=== PATIENT | female | born 1995 | race Caucasian/White ===

== ENCOUNTER 2018-10-27 09:59 | Emergency (ER) | payer OTHER ==
[~2018-10-27] VITALS: Ht 160 cm; Wt 51.5 kg
[2018-10-27 10:56] LABS: BASO % 0 % (0-3); EOS % 0 % (0-3); HEMATOCRIT 42.1 % (36.0-47.0); HEMOGLOBIN 14.6 g/dL (12.0-15.5); LYMPH % 19 % (24-48); MEAN CORPUSCULAR HEMOGLOBIN 32 pg (25-35); MEAN CORPUSCULAR HGB CONC 35 g/dL (31-37); MEAN CORPUSCULAR VOLUME 93 fL (79-100); MONO # 0.6 x10^3/uL (0.0-1.1); MONO % 6 % (0-9); NEUT # 7.9 x10^3uL (1.8-7.7); NEUT % 75 % (31-73); PLATELET COUNT 228 x10^3/uL (140-400); RED BLOOD COUNT 4.51 x10^6/uL (3.50-5.40); RED CELL DISTRIBUTION WIDTH 12.3 % (11.5-14.5); WHITE BLOOD COUNT 10.5 x10^3/uL (4.0-11.0)
--- NOTE | 2018-10-27 11:39 | PHYS DOC ---
Past History Past Medical History: No Pertinent History Past Surgical History: No Surgical History Smoking: Non-smoker Alcohol Use: None Drug Use: None Adult General Chief Complaint Chief Complaint: VAGINAL BLEEDING HPI HPI Patient is a 23 year old female with LMP of September 08 with positive urine and blood tests complaining of vaginal bleeding since this morning without abdominal pain. Patient complaining of one episode of bleeding after going to the bathroom with bright red blood without passing tissue. Patient did not start [facility] care. Review of Systems Review of Systems Constitutional: Denies fever or chills [] Eyes: Denies change in visual acuity, redness, or eye pain [] HENT: Denies nasal congestion or sore throat [] Respiratory: Denies cough or shortness of breath [] Cardiovascular: No additional information not addressed in HPI [] GI: Denies abdominal pain, nausea, vomiting, bloody stools or diarrhea [] : Denies dysuria or hematuria [] Musculoskeletal: Denies back pain or joint pain [] Integument: Denies rash or skin lesions [] Neurologic: Denies headache, focal weakness or sensory changes [] Endocrine: Denies polyuria or polydipsia [] All other systems were reviewed and found to be within normal limits, except as documented in this note. Allergies Allergies Allergies Coded Allergies Type Severity Reaction Last Updated Verified No Known Drug Allergies 10/27/18 No Physical Exam Physical Exam Constitutional: Well developed, well nourished, no acute distress, non-toxic appearance. [] HENT: Normocephalic, atraumatic. Eyes: PERRLA, EOMI, conjunctiva normal, no discharge. [] Neck: Normal range of motion, no tenderness, supple, no stridor. [] Cardiovascular:Heart rate regular rhythm, no murmur [] Lungs & Thorax: Bilateral breath sounds clear to auscultation [] Abdomen: Bowel sounds normal, soft, no tenderness, no masses, no pulsatile masses, patient refused vaginal exam. Skin: Warm, dry, no erythema, no rash. [] Back: No tenderness, no CVA tenderness. [] Extremities: No tenderness, no cyanosis, no clubbing, ROM intact, no edema. [] Neurologic: Alert and oriented X 3, normal motor function, normal sensory function, no focal deficits noted. [] Psychologic: Affect normal, judgement normal, mood normal. [] Current Patient Data Vital Signs Vital Signs Date Time Temp Pulse Resp B/P (MAP) Pulse Ox O2 Delivery O2 Flow Rate FiO2 10/27/18 11:12 93 20 108/71 (83) 99 Room Air 10/27/18 10:05 98.1 Lab Results Laboratory Tests Test 10/27/18 10:28 White Blood Count 10.5 x10^3/uL (4.0-11.0) Red Blood Count 4.51 x10^6/uL (3.50-5.40) Hemoglobin 14.6 g/dL (12.0-15.5) Hematocrit 42.1 % (36.0-47.0) Mean Corpuscular Volume 93 fL (79-100) Mean Corpuscular Hemoglobin 32 pg (25-35) Mean Corpuscular Hemoglobin Concent 35 g/dL (31-37) Red Cell Distribution Width 12.3 % (11.5-14.5) Platelet Count 228 x10^3/uL (140-400) Neutrophils (%) (Auto) 75 % (31-73) H Lymphocytes (%) (Auto) 19 % (24-48) L Monocytes (%) (Auto) 6 % (0-9) Eosinophils (%) (Auto) 0 % (0-3) Basophils (%) (Auto) 0 % (0-3) Neutrophils # (Auto) 7.9 x10^3uL (1.8-7.7) H Lymphocytes # (Auto) 2.0 x10^3/uL (1.0-4.8) Monocytes # (Auto) 0.6 x10^3/uL (0.0-1.1) Eosinophils # (Auto) 0.0 x10^3/uL (0.0-0.7) Basophils # (Auto) 0.0 x10^3/uL (0.0-0.2) Maternal Serum HCG Beta Subunit 619 mIU/mL (0-6) H EKG EKG [] Radiology/Procedures Radiology/Procedures [][address] [address] IMAGING REPORT Signed PATIENT: MOIRA VASQUEZ ACCOUNT: [id number] : 1995 LOCATION: ER AGE: 23 SEX: F EXAM STATUS: DEP ER ORD. PHYSICIAN: JAIRO COLINDRES MD REASON: 6 weeks wth vaginal bleeding PROCEDURE: OB <14 WKS W/TV Obstetrical ultrasound, 10/27/2018: HISTORY: , vaginal bleeding Transabdominal and transvaginal scans were obtained. The uterus is within normal limits in size. The central uterine echo complex is heterogeneous, measuring approximately 8 mm in AP dimension. No intrauterine gestational sac is seen. A tiny amount of fluid is present in the endocervical canal. The ovaries are of normal size. No adnexal mass is seen. A small amount of free fluid is noted in the cul-de-sac. IMPRESSION: 1. No intrauterine or extrauterine gestational sac is identified. Diagnostic possibilities include a recent spontaneous , a very early IUP or an occult ectopic . Correlation with serial hCG titers and sonographic follow-up is suggested. 2. A small amount of fluid is present in the endocervical canal. 3. Small amount of free fluid in the cul-de-sac. Electronically signed by: Jere Murphy MD (10/27/2018 11:27 AM) [facility] DICTATED AND SIGNED BY: JERE MURPHY MD DATE: 10/27/18 1121 CC: JAIRO COLINDRES MD; PCP,LESTER ~ Course & Med Decision Making Course & Med Decision Making Pertinent Labs and Imaging studies reviewed. (See chart for details) Evaluation of patient in ER showed 23-year-old female patient with LMP of September 08 with one episodes of vaginal bleeding since this morning. Patient had unremarkable physical exam. HCG level was 615 and OB ultrasound did not show intra-or extrauterine . Patient informed about possible recent or very early and instructed to follow-up with [facility] in 2 days for repeat hCG and return to ER if continuing to have vaginal bleeding or heavy bleeding. Dragon Disclaimer Dragon Disclaimer This electronic medical record was generated, in whole or in part, using a voice recognition dictation system. Departure Departure: Impression: Primary Impression: Threatened in early Referrals: [facility] (PCP) Patient Instructions: Threatened Miscarriage Additional Instructions: Follow-up with on-call [facility] [facility] [facility] Dr Fischer in 2 days to repeat the blood tests, call [phone] to make an appointment Drink plenty of liquids Return to ER if not getting better JAIRO COLINDRES MD Oct 27, 2018 11:39
[2018-10-27 12:20] VITALS: BP 108/68
--- NOTE | 2018-10-27 13:58 | RAD ---
Obstetrical ultrasound, 10/27/2018: HISTORY: , vaginal bleeding Transabdominal and transvaginal scans were obtained. The uterus is within normal limits in size. The central uterine echo complex is heterogeneous, measuring approximately 8 mm in AP dimension. No intrauterine gestational sac is seen. A tiny amount of fluid is present in the endocervical canal. The ovaries are of normal size. No adnexal mass is seen. A small amount of free fluid is noted in the cul-de-sac. IMPRESSION: 1. No intrauterine or extrauterine gestational sac is identified. Diagnostic possibilities include a recent spontaneous , a very early IUP or an occult ectopic . Correlation with serial hCG titers and sonographic follow-up is suggested. 2. A small amount of fluid is present in the endocervical canal. 3. Small amount of free fluid in the cul-de-sac. Electronically signed by: Jere Murphy MD (10/27/2018 11:27 AM) [facility]
== END 2018-10-27 12:20 | disposition home or self-care (01) ==
LOC: ER 09:59
DX: O20.0 Threatened abortion (principal); Z3A.00 Weeks of gestation of pregnancy not specified
CPT/HCPCS: 36415; 76801; 76817; 84702; 85025; 86900; 86901; 99284-25